=== PATIENT | male | born 1980 | race Two or more races ===

== ENCOUNTER 2021-12-23 23:19 | Emergency (ER) | payer SELFPAY ==
[~2021-12-23] VITALS: Ht 175.3 cm; Wt 74.8 kg
[2021-12-23 23:43] VITALS: BP 139/79
--- NOTE | 2021-12-24 00:15 | NUR ---
Patient eloped from facility. ER MD notified.
== END 2021-12-24 00:20 | disposition left against medical advice (07) ==
LOC: ER 23:22
DX: S90.812A Abrasion, left foot, initial encounter (principal); Z60.2 Problems related to living alone; X50.1XXA Overexertion from prolonged static or awkward postures, initial encounter; Y93.89 Activity, other specified; Y92.89 Other specified places as the place of occurrence of the external cause; Y99.8 Other external cause status